=== PATIENT | female | born 1955 | race Caucasian/White ===

== ENCOUNTER 2018-04-15 11:22 | Emergency (ER) | payer BC ==
[2018-04-15] MEDS ORDERED: KETOROLAC 30 MG/ML VIAL IM ONE (11:54)
--- NOTE | 2018-04-15 12:30 | Emergency Department Record ---
History of Present Illness - General Chief Complaint: Neck Injury/Pain Stated Complaint: RT SIDE NECK & ARM PAIN Time Seen by Provider: 04/15/18 11:47 Source: Patient Mode of Arrival: Ambulatory Limitations: No limitations - History of Present Illness Initial Comments: pt has been having pain in the r side of her neck that radiates down her right arm. Complaint: Neck pain Onset/Timin -: Week(s) Place: Work Radiation: Right shoulder, Upper back Severity: Moderate Severity scale (1-10): 6 Quality: Burning, Sharp Consistency: Constant, Intermittent Improves With: Remaining still Worsens With: Movement of extremity, Movement of neck Context: Other Associated Symptoms: None Treatments Prior to Arrival: None - Related Data Home Medications Medication Instructions Recorded Confirmed Last Taken Fluticasone/Vilanterol [Breo 1 puff INH DAILY 04/15/18 04/15/18 04/15/18 Ellipta 200-25 Mcg INH] Previous Rx's Medication Instructions Recorded Cyclobenzaprine HCl [Flexeril] 5 mg PO QHS #10 tab 04/15/18 Ibuprofen [Motrin 600Mg] 600 mg PO Q6H PRN #20 tablet 04/15/18 Allergies Allergy/AdvReac Type Severity Reaction Status Date / Time prednisone AdvReac insomnia Verified 04/15/18 11:26 Travel Screening - Travel/Exposure Within Last 30 Days Have you traveled within the last 30 days?: No - Travel/Exposure Within Last Year Have you traveled outside the [place] in the last year?: No - Additonal Travel Details Have you been exposed to anyone with a communicable illness?: No - Travel Symptoms Symptom Screening: None Review of Systems Reviewed: No additional complaints except as noted below Constitutional: Reports: As per HPI. Denies: Chills, Fever, Malaise, Night sweats, Weakness, Weight change Eyes: Reports: As per HPI. Denies: Eye discharge, Eye pain, Photophobia, Vision change ENT: Reports: As per HPI. Denies: Congestion, Dental pain, Ear pain, Epistaxis , Hearing loss, Throat pain Respiratory: Reports: As per HPI. Denies: Cough, Dyspnea, Hemoptysis, Stridor, Wheezes Cardiovascular: Reports: As per HPI. Denies: Arrhythmia, Chest pain, Dyspnea on exertion, Edema, Murmurs, Orthopnea, Palpitations, Paroxysmal nocturnal dyspnea, Rheumatic Fever, Syncope Endocrine: Reports: As per HPI. Denies: Fatigue, Heat or cold intolerance, Polydipsia, Polyuria Gastrointestinal: Reports: As per HPI. Denies: Abdominal pain, Constipation, Diarrhea, Hematemesis, Hematochezia, Melena, Nausea, Vomiting Genitourinary: Reports: As per HPI. Denies: Abnormal menses, Discharge, Dyspareunia, Dysuria, Frequency, Hematuria, Incontinence, Retention, Urgency Musculoskeletal: Reports: As per HPI. Denies: Arthralgia, Back pain, Gout, Joint swelling, Myalgia, Neck pain Skin: Reports: As per HPI. Denies: Bruising, Change in color, Change in hair/ nails, Lesions, Pruritus, Rash Neurological: Reports: As per HPI. Denies: Abnormal gait, Confusion, Headache, Numbness, Paresthesias, Seizure, Tingling, Tremors, Vertigo, Weakness Psychiatric: Reports: As per HPI. Denies: Anxiety, Auditory hallucinations, Depression, Homicidal thoughts, Suicidal thoughts, Visual hallucinations Hematological/Lymphatic: Reports: As per HPI. Denies: Anemia, Blood Clots, Easy bleeding, Easy bruising, Swollen glands Past Medical History - SOCIAL HISTORY Smoking Status: Never smoker Alcohol Use: None Drug Use: None - RESPIRATORY Hx Respiratory Disorders: Yes Hx Asthma: Yes - CARDIOVASCULAR Hx Cardio Disorders: Yes Hx Pacemaker/Defib: Yes Comment:: AV block / Afib - NEURO Hx Neuro Disorders: No - GI Hx GI Disorders: Yes Hx Reflux: Yes - Hx Genitourinary Disorders: No - ENDOCRINE Hx Endocrine Disorders: No - MUSCULOSKELETAL Hx Musculoskeletal Disorders: No - PSYCH Hx Psych Problems: No - HEMATOLOGY/ONCOLOGY Hx Hematology/Oncology Disorders: No Family Medical History Any Significant Family History?: Yes Hx Cancer: Father, Grandparents Hx Heart Disease: Mother Physical Exam - General General Appearance: Alert, Oriented x3, Cooperative, Mild distress - Head Head exam: Normal inspection - Eye Eye exam: Normal appearance, PERRL, EOMI Pupils: Normal accommodation - ENT ENT exam: Normal exam, Mucous membranes moist, Normal external ear exam, Normal orophraynx Ear exam: Normal external inspection. negative: External canal tenderness Nasal Exam: Normal inspection. negative: Discharge, Sinus tenderness Mouth exam: Normal external inspection, Tongue normal Teeth exam: Normal inspection. negative: Dental caries Throat exam: Normal inspection. negative: Tonsillar erythema, Tonsillar exudate - Neck Neck exam: Full ROM, Tenderness - Respiratory Respiratory exam: Normal lung sounds bilaterally. negative: Respiratory distress - Cardiovascular Cardiovascular Exam: Regular rate, Normal rhythm, Normal heart sounds - GI/Abdominal GI/Abdominal exam: Soft, Normal bowel sounds. negative: Tenderness - Rectal Rectal exam: Deferred - exam: Deferred - Extremities Extremities exam: Normal inspection, Full ROM, Normal capillary refill. negative: Tenderness - Back Back exam: Reports: Normal inspection, Full ROM. Denies: Muscle spasm, Rash noted, Tenderness - Neurological Neurological exam: Alert, Normal gait, Oriented X3, Reflexes normal - Psychiatric Psychiatric exam: Normal affect, Normal mood - Skin Skin exam: Dry, Intact, Normal color, Warm Course Vital Signs 04/15/18 11:31 Temperature 97.8 F Pulse Rate 68 Respiratory 18 Rate Blood Pressure 109/70 Pulse Ox 97 Disposition Disposition: Discharge Clinical Impression: Cervical radiculopathy Disposition: Home, Self-Care Condition: (1) Good Instructions: Cervical Radiculopathy (ED) Additional Instructions: follow up with family doctor. return sooner if worse. moist heat to neck. Prescriptions: Cyclobenzaprine HCl [Flexeril] 5 mg PO QHS #10 tab Ibuprofen [Motrin 600Mg] 600 mg PO Q6H PRN #20 tablet PRN Reason: Pain - Moderate (5-7) Forms: Patient Portal Access Quality - Quality Measures Quality Measures: N/A - Blood Pressure Screening Does Patient Have Any of the Following: No Blood Pressure Classification: Normal BP Reading Systolic Measurement: 109 Diastolic Measurement: 70 Screening for High Blood Pressure: < Normal BP, F/U Not Required > [G8783]
--- NOTE | 2018-04-17 08:04 | RADIOLOGY REPORT ---
DATE: 04/15/2018. EXAM: CERVICAL SPINE. HISTORY: Injury. TECHNIQUE: AP, lateral, oblique, and open-mouth views of the cervical spine were performed. FINDINGS: There is osteopenia. There is straightening of the normal cervical lordosis. There is degenerative change at C5-6. No evidence of fracture. There is neuroforaminal narrowing at the C5-6 and C6-7 levels. IMPRESSION: OSTEOPENIA. DEGENERATIVE CHANGE AT C5-6. THERE IS BILATERAL NEUROFORAMINAL NARROWING AT THE C5-6 AND C6-7 LEVELS. NO EVIDENCE OF FRACTURE. JOB NUMBER: [id number] [facility]
== END 2018-04-15 13:25 | disposition home or self-care (01) ==
LOC: ER 11:22
DX: M54.12 Radiculopathy, cervical region (principal)
CPT/HCPCS: 99283 ×2; 96372; 72050; J1885